=== PATIENT | male | born 1950 | race Caucasian/White ===

== ENCOUNTER 2020-12-04 14:48 | Outpatient (CLI) | payer MEDICARE | END 2020-12-04 14:49 | disposition home or self-care (01) | LOC: CSHWCC 14:48 | PROVIDERS: ATTEND Nurse Practitioner Family | DX: L89.622 Pressure ulcer of left heel, stage 2 (principal); L89.610 Pressure ulcer of right heel, unstageable; R60.0 Localized edema; E11.40 Type 2 diabetes mellitus with diabetic neuropathy, unspecified; E78.2 Mixed hyperlipidemia; G47.37 Central sleep apnea in conditions classified elsewhere; I10 Essential (primary) hypertension; I87.2 Venous insufficiency (chronic) (peripheral); Z74.01 Bed confinement status | CPT/HCPCS: 11042; 29581; 99213; G0463 ==

== ENCOUNTER 2020-12-22 11:00 | Outpatient (CLI) | payer MEDICARE | END 2020-12-22 11:01 | disposition home or self-care (01) | LOC: CSHWCC 11:00 | PROVIDERS: ATTEND Nurse Practitioner Family | DX: L89.622 Pressure ulcer of left heel, stage 2 (principal); L89.610 Pressure ulcer of right heel, unstageable; R60.0 Localized edema; E11.40 Type 2 diabetes mellitus with diabetic neuropathy, unspecified; E78.2 Mixed hyperlipidemia; G47.37 Central sleep apnea in conditions classified elsewhere; I10 Essential (primary) hypertension; I87.2 Venous insufficiency (chronic) (peripheral); Z74.01 Bed confinement status | CPT/HCPCS: 11042; 29581; 87070; 87077; 87186; 87205; 97139; G0463; 99214 ==

== ENCOUNTER 2020-12-29 10:34 | Outpatient (CLI) | payer MEDICARE | END 2020-12-29 10:35 | disposition home or self-care (01) | LOC: CSHWCC 10:34 | PROVIDERS: ATTEND Nurse Practitioner Family | DX: L89.610 Pressure ulcer of right heel, unstageable (principal); L89.622 Pressure ulcer of left heel, stage 2; R60.0 Localized edema; E11.40 Type 2 diabetes mellitus with diabetic neuropathy, unspecified; E78.2 Mixed hyperlipidemia; G47.37 Central sleep apnea in conditions classified elsewhere; I10 Essential (primary) hypertension; I87.2 Venous insufficiency (chronic) (peripheral); Z74.01 Bed confinement status | CPT/HCPCS: 29581; 97139; G0463; 99214 ==

== ENCOUNTER 2021-03-14 10:19 | Outpatient (CLI) | payer MEDICARE | END 2021-03-14 10:20 | disposition home or self-care (01) | LOC: CSHWCC 10:19 | PROVIDERS: ATTEND Nurse Practitioner Family | DX: M86.671 Other chronic osteomyelitis, right ankle and foot (principal) | CPT/HCPCS: 82962; 97139; G0277; 36416 ==

== ENCOUNTER 2021-04-02 08:41 | Outpatient (CLI) | payer MEDICARE | END 2021-04-02 08:42 | disposition home or self-care (01) | LOC: CSHWCC 08:41 | PROVIDERS: ATTEND Nurse Practitioner Family | DX: M86.671 Other chronic osteomyelitis, right ankle and foot (principal) | CPT/HCPCS: 82962; 97139; G0277; 36416 ==

== ENCOUNTER 2021-04-03 09:26 | Outpatient (CLI) | payer MEDICARE | END 2021-04-03 09:27 | disposition home or self-care (01) | LOC: CSHWCC 09:26 | PROVIDERS: ATTEND Nurse Practitioner Family | DX: M86.671 Other chronic osteomyelitis, right ankle and foot (principal) | CPT/HCPCS: 82962; 97139 ×2; G0277 ×2; 36416 ==

== ENCOUNTER 2021-04-04 08:09 | Outpatient (CLI) | payer MEDICARE | END 2021-04-04 08:10 | disposition home or self-care (01) | LOC: CSHWCC 08:09 | PROVIDERS: ATTEND Nurse Practitioner Family | DX: M86.671 Other chronic osteomyelitis, right ankle and foot (principal) | CPT/HCPCS: 82962; 97139; G0277; 36416 ==

== ENCOUNTER 2021-04-12 08:45 | Outpatient (CLI) | payer MEDICARE ==
[2021-04-11 18:06] LABS: #Eosinphils 0.3 thou/uL (0.0-0.7); #Monocytes 0.5 thou/uL (0.11-0.59); #Neutrophils 4.8 thou/uL (1.40-6.50); %Basophils 0.5 % (0.0-1.0); %Eosinophils 4.5 % (0.0-10.0); %Lymphocytes 24.2 % (21.0-51.0); %Monocytes 6.7 % (0.0-10.0); %Neutrophils 64.1 % (42.0-75.0); Mean Corpuscular HGB CONC 33.8 g/dL (32.0-36.0); Mean Corpuscular Hemoglobin 30.8 pg (27.0-31.0); Mean Corpuscular Volume 91.3 fL (78.0-98.0); Mean Platelet Volume 8.1 fL (7.4-10.4); Platelet Count 184 thou/uL (130-400); Red Blood Cell (RBC) Count 3.25 mill/uL (4.70-6.10); White Blood Cell (WBC) Count 7.4 thou/uL (4.8-10.8)
[2021-04-18 23:24] LABS: Free T4 (Free Thyroxine) 0.92 ng/dL (0.70-1.48); Thyroid Stimulating Hormone 0.6717 uIU/mL (0.35-4.94)
[2021-04-18 23:26] LABS: ALT (SGPT) 12 U/L (8-55); AST (SGOT) 14 U/L (5-34); Albumin 3.3 g/dL (3.4-4.8); Alkaline Phosphatase 98 U/L (40-110); Anion Gap 10 mmol/L (10-20); BUN (Urea Nitrogen) 43 mg/dL (8.4-25.7); Bilirubin, Total 0.3 mg/dL (0.2-1.2); Calc. Creatinine Clearance 0 mL/min (70-130); Calcium 8.6 mg/dL (7.8-10.44); Carbon Dioxide 31 mmol/L (23-31); Chloride 102 mmol/L (98-107); Globulin 2.4 g/dL (2.4-3.5); Glucose 250 mg/dL (83-110); Potassium 4.4 mmol/L (3.5-5.1); Protein, Total 5.7 g/dL (5.8-8.1); Sodium 139 mmol/L (136-145)
== END 2021-04-12 08:46 | disposition home or self-care (01) ==
LOC: CSHWCC 08:45
PROVIDERS: ATTEND Nurse Practitioner Family
DX: L89.622 Pressure ulcer of left heel, stage 2 (principal); L89.610 Pressure ulcer of right heel, unstageable; I87.2 Venous insufficiency (chronic) (peripheral); E11.40 Type 2 diabetes mellitus with diabetic neuropathy, unspecified; E78.2 Mixed hyperlipidemia; G47.37 Central sleep apnea in conditions classified elsewhere; I10 Essential (primary) hypertension; M86.671 Other chronic osteomyelitis, right ankle and foot; R60.0 Localized edema; Z74.01 Bed confinement status
CPT/HCPCS: 11042; 36416; 80053; 84439; 84443; 85025; 99213; G0277; G0463

== ENCOUNTER 2021-04-17 08:16 | Outpatient (CLI) | payer MEDICARE | END 2021-04-17 08:17 | disposition home or self-care (01) | LOC: CSHWCC 08:16 | PROVIDERS: ATTEND Nurse Practitioner Family | DX: L89.622 Pressure ulcer of left heel, stage 2 (principal); L89.610 Pressure ulcer of right heel, unstageable; I87.2 Venous insufficiency (chronic) (peripheral); E11.40 Type 2 diabetes mellitus with diabetic neuropathy, unspecified; E11.69 Type 2 diabetes mellitus with other specified complication; M86.671 Other chronic osteomyelitis, right ankle and foot; R60.0 Localized edema; G47.37 Central sleep apnea in conditions classified elsewhere; E78.2 Mixed hyperlipidemia; I10 Essential (primary) hypertension | CPT/HCPCS: 82962; 97139; G0277; 36416 ==

== ENCOUNTER 2021-04-25 10:43 | Outpatient (CLI) | payer MEDICARE | END 2021-04-25 10:44 | disposition home or self-care (01) | LOC: CSHWCC 10:43 | PROVIDERS: ATTEND Nurse Practitioner Family | DX: M86.60 Other chronic osteomyelitis, unspecified site (principal) | CPT/HCPCS: 36416; G0277 ==

== ENCOUNTER 2021-05-02 08:11 | Outpatient (CLI) | payer MEDICARE | END 2021-05-02 08:12 | disposition home or self-care (01) | LOC: CSHWCC 08:11 | PROVIDERS: ATTEND Nurse Practitioner Family | DX: L89.614 Pressure ulcer of right heel, stage 4 (principal); E11.40 Type 2 diabetes mellitus with diabetic neuropathy, unspecified; E78.2 Mixed hyperlipidemia; G47.37 Central sleep apnea in conditions classified elsewhere; I10 Essential (primary) hypertension; I87.2 Venous insufficiency (chronic) (peripheral); L89.622 Pressure ulcer of left heel, stage 2; M86.671 Other chronic osteomyelitis, right ankle and foot; R60.0 Localized edema; S91.201A Unspecified open wound of right great toe with damage to nail, initial encounter; Z74.01 Bed confinement status | CPT/HCPCS: 11042; 36416; 99213; G0277; G0463 ==

== ENCOUNTER 2021-05-03 08:18 | Outpatient (CLI) | payer MEDICARE | END 2021-05-03 08:19 | disposition home or self-care (01) | LOC: CSHWCC 08:18 | PROVIDERS: ATTEND Nurse Practitioner Family | DX: M86.671 Other chronic osteomyelitis, right ankle and foot (principal) | CPT/HCPCS: 82962; 97139; G0277; 36416 ==

== ENCOUNTER 2021-05-04 08:58 | Outpatient (CLI) | payer MEDICARE | END 2021-05-04 08:59 | disposition home or self-care (01) | LOC: CSHWCC 08:58 | PROVIDERS: ATTEND Nurse Practitioner Family | DX: M86.671 Other chronic osteomyelitis, right ankle and foot (principal) | CPT/HCPCS: 36416; G0277 ==

== ENCOUNTER 2021-05-07 08:46 | Outpatient (CLI) | payer MEDICARE | END 2021-05-07 08:47 | disposition home or self-care (01) | LOC: CSHWCC 08:46 | PROVIDERS: ATTEND Nurse Practitioner Family | DX: M86.671 Other chronic osteomyelitis, right ankle and foot (principal) | CPT/HCPCS: 82962; 97139; G0277; 36416 ==

== ENCOUNTER 2021-05-08 08:39 | Outpatient (CLI) | payer MEDICARE | END 2021-05-08 08:40 | disposition home or self-care (01) | LOC: CSHWCC 08:39 | PROVIDERS: ATTEND Nurse Practitioner Family | DX: M86.671 Other chronic osteomyelitis, right ankle and foot (principal) | CPT/HCPCS: 36416; G0277 ==

== ENCOUNTER 2021-05-09 08:22 | Outpatient (CLI) | payer MEDICARE | END 2021-05-09 08:23 | disposition home or self-care (01) | LOC: CSHWCC 08:22 | PROVIDERS: ATTEND Nurse Practitioner Family | DX: M86.671 Other chronic osteomyelitis, right ankle and foot (principal) | CPT/HCPCS: 36416; G0277 ==

== ENCOUNTER 2021-05-11 08:35 | Outpatient (CLI) | payer MEDICARE | END 2021-05-11 08:36 | disposition home or self-care (01) | LOC: CSHWCC 08:35 | PROVIDERS: ATTEND Nurse Practitioner Family | DX: M86.671 Other chronic osteomyelitis, right ankle and foot (principal) | CPT/HCPCS: 82962; 97139; G0277; 36416 ==

== ENCOUNTER 2021-05-14 08:35 | Outpatient (CLI) | payer MEDICARE | END 2021-05-14 08:36 | disposition home or self-care (01) | LOC: CSHWCC 08:35 | PROVIDERS: ATTEND Nurse Practitioner Family | DX: M86.60 Other chronic osteomyelitis, unspecified site (principal) | CPT/HCPCS: 36416; G0277 ==

== ENCOUNTER 2021-07-19 11:12 | Outpatient (CLI) | payer MEDICARE | END 2021-07-19 11:13 | disposition home or self-care (01) | LOC: CSHWCC 11:12 | PROVIDERS: ATTEND Nurse Practitioner Family | DX: L89.622 Pressure ulcer of left heel, stage 2 (principal); I87.2 Venous insufficiency (chronic) (peripheral); R60.0 Localized edema; E11.40 Type 2 diabetes mellitus with diabetic neuropathy, unspecified; E11.69 Type 2 diabetes mellitus with other specified complication; M86.671 Other chronic osteomyelitis, right ankle and foot; E78.2 Mixed hyperlipidemia; G47.37 Central sleep apnea in conditions classified elsewhere; I10 Essential (primary) hypertension; Z74.01 Bed confinement status ==

== ENCOUNTER 2021-08-01 09:50 | Outpatient (CLI) | payer MEDICARE | END 2021-08-01 09:51 | disposition home or self-care (01) | LOC: CSHWCC 09:50 | PROVIDERS: ATTEND Nurse Practitioner Family | DX: L89.622 Pressure ulcer of left heel, stage 2 (principal); I87.2 Venous insufficiency (chronic) (peripheral); E11.40 Type 2 diabetes mellitus with diabetic neuropathy, unspecified; E11.69 Type 2 diabetes mellitus with other specified complication; M86.671 Other chronic osteomyelitis, right ankle and foot; R60.0 Localized edema; E78.2 Mixed hyperlipidemia; G47.37 Central sleep apnea in conditions classified elsewhere; I10 Essential (primary) hypertension; Z74.01 Bed confinement status | CPT/HCPCS: 11042; 99213; G0463 ==

== ENCOUNTER 2021-08-15 09:09 | Outpatient (CLI) | payer MEDICARE | END 2021-08-15 09:10 | disposition home or self-care (01) | LOC: CSHWCC 09:09 | PROVIDERS: ATTEND Nurse Practitioner Family | DX: L89.622 Pressure ulcer of left heel, stage 2 (principal); L89.892 Pressure ulcer of other site, stage 2; I87.2 Venous insufficiency (chronic) (peripheral); E11.40 Type 2 diabetes mellitus with diabetic neuropathy, unspecified; E11.69 Type 2 diabetes mellitus with other specified complication; M86.671 Other chronic osteomyelitis, right ankle and foot; R60.0 Localized edema; G47.37 Central sleep apnea in conditions classified elsewhere; E78.2 Mixed hyperlipidemia; I10 Essential (primary) hypertension; Z74.01 Bed confinement status | CPT/HCPCS: 87070; 87077; 87186; 87205 ==

== ENCOUNTER 2021-08-29 11:00 | Outpatient (CLI) | payer MEDICARE | END 2021-08-29 11:01 | disposition home or self-care (01) | LOC: CSHWCC 11:00 | PROVIDERS: ATTEND Nurse Practitioner Family | DX: L89.622 Pressure ulcer of left heel, stage 2 (principal); L89.892 Pressure ulcer of other site, stage 2; I87.2 Venous insufficiency (chronic) (peripheral); E11.40 Type 2 diabetes mellitus with diabetic neuropathy, unspecified; E78.2 Mixed hyperlipidemia; G47.37 Central sleep apnea in conditions classified elsewhere; I10 Essential (primary) hypertension; M86.671 Other chronic osteomyelitis, right ankle and foot; R60.0 Localized edema; Z74.01 Bed confinement status ==

== ENCOUNTER 2021-09-19 15:11 | Outpatient (CLI) | payer MEDICARE | END 2021-09-19 15:12 | disposition home or self-care (01) | LOC: CSHWCC 15:11 | PROVIDERS: ATTEND Nurse Practitioner Family | DX: L89.622 Pressure ulcer of left heel, stage 2 (principal); L89.892 Pressure ulcer of other site, stage 2; I87.2 Venous insufficiency (chronic) (peripheral); E11.40 Type 2 diabetes mellitus with diabetic neuropathy, unspecified; E11.69 Type 2 diabetes mellitus with other specified complication; M86.671 Other chronic osteomyelitis, right ankle and foot; R60.0 Localized edema; E78.2 Mixed hyperlipidemia; G47.37 Central sleep apnea in conditions classified elsewhere; Z74.01 Bed confinement status ==

== ENCOUNTER 2021-10-10 14:50 | Outpatient (CLI) | payer MEDICARE | END 2021-10-10 14:51 | disposition home or self-care (01) | LOC: CSHWCC 14:50 | PROVIDERS: ATTEND Nurse Practitioner Family | DX: L89.892 Pressure ulcer of other site, stage 2 (principal); L89.622 Pressure ulcer of left heel, stage 2; I87.2 Venous insufficiency (chronic) (peripheral); E11.69 Type 2 diabetes mellitus with other specified complication; E11.40 Type 2 diabetes mellitus with diabetic neuropathy, unspecified; M86.671 Other chronic osteomyelitis, right ankle and foot; R60.0 Localized edema; E78.2 Mixed hyperlipidemia; G47.37 Central sleep apnea in conditions classified elsewhere; I10 Essential (primary) hypertension; Z74.01 Bed confinement status ==

== ENCOUNTER 2021-10-31 14:50 | Outpatient (CLI) | payer MEDICARE | END 2021-10-31 14:51 | disposition home or self-care (01) | LOC: CSHWCC 14:50 | PROVIDERS: ATTEND Nurse Practitioner Family | DX: R60.0 Localized edema (principal) | CPT/HCPCS: 97139; G0463; 99213 ==

== ENCOUNTER 2022-01-07 09:56 | Outpatient (CLI) | payer MEDICARE | END 2022-01-07 09:57 | disposition home or self-care (01) | LOC: CSHWCC 09:56 | PROVIDERS: ATTEND Nurse Practitioner Family | DX: R60.0 Localized edema (principal) | CPT/HCPCS: 97139; G0463; 99212 ==

== ENCOUNTER 2022-10-16 21:14 | Emergency (ER) | payer MEDICARE ==
[2022-10-16 23:03] LABS: #Eosinphils 0.2 10x3/uL (0.0-0.5); #Monocytes 0.6 10x3/uL (0.0-1.1); #Neutrophils 4.8 10x3/uL (1.5-8.4); %Basophils 0.4 % (0.0-2.0); %Eosinophils 2.6 % (0.0-6.0); %Lymphocytes 22.2 % (18.0-47.0); %Monocytes 8.6 % (0.0-10.0); %Neutrophils 65.8 % (40.0-75.0); Hemoglobin 11.8 g/dL (13.5-17.5); Mean Corpuscular Hemoglobin 29.2 pg (27.0-33.0); Mean Corpuscular Volume 88.6 fl (81.2-95.1); Platelet Count 204 10x3/uL (150-450); RBC Distribution Width 14.5 % (11.5-14.5); Red Blood Cell (RBC) Count 4.04 10x6/uL (4.32-5.72); White Blood Cell (WBC) Count 7.3 10x3/uL (3.5-10.5)
[2022-10-16 23:10] LABS: ALT (SGPT) 21 U/L (8-55); AST (SGOT) 25 U/L (5-34); Albumin 3.4 g/dL (3.4-4.8); Alkaline Phosphatase 78 U/L (40-110); Anion Gap 13 mmol/L (10-20); BUN (Urea Nitrogen) 38 mg/dL (8.4-25.7); Bilirubin, Total 0.3 mg/dL (0.2-1.2); Calc. Creatinine Clearance 0 mL/min (70-130); Calcium 8.7 mg/dL (7.8-10.44); Carbon Dioxide 26 mmol/L (23-31); Chloride 102 mmol/L (98-107); Estimated GFR 45; Globulin 3.2 g/dL (2.4-3.5); Glucose 211 mg/dL (83-110); Potassium 3.9 mmol/L (3.5-5.1); Protein, Total 6.6 g/dL (5.8-8.1); Sodium 137 mmol/L (136-145)
[2022-10-16] MEDS ORDERED: Furosemide 40 MG/4 ML VIAL ONE (23:51)
== END 2022-10-17 00:13 | disposition home or self-care (01) ==
LOC: CSHERS 21:14
DX: R60.9 Edema, unspecified (principal); L53.9 Erythematous condition, unspecified; E11.22 Type 2 diabetes mellitus with diabetic chronic kidney disease; N18.4 Chronic kidney disease, stage 4 (severe); I12.9 Hypertensive chronic kidney disease with stage 1 through stage 4 chronic kidney disease, or unspecified chronic kidney disease; E78.5 Hyperlipidemia, unspecified; Z79.01 Long term (current) use of anticoagulants; Z79.899 Other long term (current) drug therapy
CPT/HCPCS: 80053; 85025; 96374; J1940